=== PATIENT | female | born 1965 | race Caucasian/White ===

== ENCOUNTER → 2017-10-06 | Outpatient (REF) ==
[~2017-10-06] MED LIST: BENICAR HCT 12.1 TAB PO; SARAFEM20 M1 PO; SYNTHROID0.125 MG/T PO
== END ==
LOC: ZLAB.WCH 16:40
DX: Z01.89 Encounter for other specified special examinations (principal)

== ENCOUNTER → 2017-10-09 | Outpatient (REF) | LOC: COL.CARD 16:37 | DX: Z01.89 Encounter for other specified special examinations (principal) ==

== ENCOUNTER → 2017-12-06 | Outpatient (REF) | LOC: ZMSC 15:23 | DX: Z01.89 Encounter for other specified special examinations (principal) ==

== ENCOUNTER → 2019-08-27 | Outpatient (CLI) | payer OTHER | LOC: MC.RAD 07:45 | DX: Z12.31 Encounter for screening mammogram for malignant neoplasm of breast (principal) ==

== ENCOUNTER → 2021-05-25 | Outpatient (CLI) | payer OTHER | LOC: MC.RAD 15:08 | DX: Z12.31 Encounter for screening mammogram for malignant neoplasm of breast (principal); N64.89 Other specified disorders of breast ==

== ENCOUNTER → 2021-06-07 | Outpatient (CLI) | payer OTHER | LOC: MC.RAD 09:53 | DX: N63.10 Unspecified lump in the right breast, unspecified quadrant (principal); N63.20 Unspecified lump in the left breast, unspecified quadrant ==

== ENCOUNTER → 2021-12-07 | Outpatient (CLI) | payer BC | LOC: MC.RAD 12:54 | DX: N64.9 Disorder of breast, unspecified (principal) ==